=== PATIENT | male | born 1970 | race Caucasian/White ===

== ENCOUNTER 2016-11-29 17:27 | Inpatient (IN) | payer OTHER ==
[~2016-11-29] VITALS: Ht 172.7 cm; Wt 81.6 kg
--- NOTE | ~2016-11-29 | US67 ---
[facility] A Service of [facility] RADIOLOGY TEXT RESULTS PATIENT: SHARON RIVERA LOCATION: [facility] 320-01 : 72 UNIT #: [id number] AGE: [address]: Lety Ibarra MD SEX: M ORDER DR: [id number] [facility] [address] [place], [place] [address] [id number] I MR#: [id number] Acc #: [id number] NAME: SHARON RIVERA. : 1970 SEX: M STUDY DATE/TIME: 11/30/2016 7:21 UNIT: [address] ROOM: [facility] STUDY DESCRIPTION: US Gallbladder Attending Physician: Lety Ibarra M.D. Ordering Physician: Ana Taylor M.D. Primary Care Physician: Adolph Winchester M.D. MEDICAL IMAGING REPORT This report is preliminary unless electronic signature is present EXAM gallbladder ultrasound 11/30/2016 HISTORY Right upper quadrant abdominal pain and abdominal bloating for 2 years worsening in the last month. FINDINGS The liver is homogeneous in echotexture and demonstrates no cystic or solid mass lesions. The intra and extrahepatic bile ducts are not dilated. The gallbladder demonstrates a diffusely thickened wall measuring 5 mm. There is no evidence of cholelithiasis. If there is clinical concern for acalculous cholecystitis recommend correlation with HIDA scan. The common duct measures 4 mm. The pancreas and right kidney are normal. Right pleural effusion is noted. IMPRESSION 1. Mild diffuse thickening of the gallbladder wall with no evidence of cholelithiasis. If there is clinical concern for acalculous cholecystitis recommend correlation with HIDA scan. 2. Right pleural effusion. Dictated by... Jorge Simms M.D. THIS IS AN ELECTRONICALLY VERIFIED REPORT Jorge Simms M.D. at 12/01/2016 7:48 AM BUDDY/richard TD: 11/30/2016 10:32 JOB #: [id number] [facility] A Service of [facility] RADIOLOGY TEXT RESULTS PATIENT: SHARON RIVERA LOCATION: [facility] 320-01 : 72 UNIT #: [id number] AGE: [address]: Lety Ibarra MD SEX: M ORDER DR: MEDICAL IMAGING REPORT Page 1 of 1 COPY
--- NOTE | ~2016-11-29 | CR72 ---
[facility] A Service of [facility] RADIOLOGY TEXT RESULTS PATIENT: SHARON RIVERA LOCATION: [facility] 320-01 : 72 UNIT #: [id number] AGE: [address]: Lety Ibarra MD SEX: M ORDER DR: [id number] [facility] [address] [place], [place] [address] [id number] E MR#: [id number] Acc #: [id number] NAME: SHARON RIVERA. : 1970 SEX: M STUDY DATE/TIME: 11/29/2016 18:59 UNIT: [facility] ROOM: STUDY DESCRIPTION: CR Chest Single View Portable Attending Physician: Robert Maldonado D.O. Ordering Physician: Robert Maldonado D.O. Primary Care Physician: Adolph Winchester M.D. MEDICAL IMAGING REPORT This report is preliminary unless electronic signature is present EXAM Portable chest. HISTORY Chest pain, shortness of air for 2 days. FINDINGS Portable view of the chest demonstrates cardiomegaly with prominence of the pulmonary vascularity and interstitium, could represent early CHF. There is slight blunting of both CP angles suggesting small bilateral effusions. Opacity in the right lung base could represent early airspace disease. Background changes suggest mild emphysema. Osseous structures unremarkable. Mediastinum unremarkable. Dictated by... Maninder Justice M.D. THIS IS AN ELECTRONICALLY VERIFIED REPORT Maninder Justice M.D. at 11/30/2016 2:21 PM Ambrocio TD: 11/29/2016 23:11 JOB #: [id number] MEDICAL IMAGING REPORT Page 1 of 1 COPY
--- NOTE | ~2016-11-29 | CT16 ---
[facility] A Service of [facility] RADIOLOGY TEXT RESULTS PATIENT: SHARON RIVERA LOCATION: [facility] 320-01 : 72 UNIT #: [id number] AGE: [address]: Lety Ibarra MD SEX: M ORDER DR: [id number] [facility] [address] [place], [place] [address] [id number] I MR#: [id number] Acc #: [id number] NAME: SHARON RIVERA. : 1970 SEX: M STUDY DATE/TIME: 11/29/2016 21:09 UNIT: [facility] ROOM: 90[address] STUDY DESCRIPTION: CT Angio Chest for PE Attending Physician: Ana Taylor M.D. Ordering Physician: Robert Maldonado D.O. Primary Care Physician: Adolph Winchester M.D. MEDICAL IMAGING REPORT This report is preliminary unless electronic signature is present EXAM CT chest PE protocol. HISTORY Chest pain, abdominal pain, bloating, onset today. This CT exam was performed with one or more of the following radiation dose reduction techniques: automatic exposure control, adjustment of mA and/or kV according to patient size, and iterative reconstruction. FINDINGS Axial images performed through the chest following IV contrast. 3-D coronal and sagittal reconstructed images were reviewed. There are bilateral pleural effusions with a small right pleural effusion measuring up to 2.5 cm to 3 cm in depth and a small left pleural effusion layering to a depth of less than a centimeter. Focal ground-glass and airspace opacity noted right lower lobe concerning for acute infectious pneumonia. There is also focal airspace opacity left upper lobe anteriorly, also concerning for focal pneumonia. There is some overall increased density throughout the lung which may represent diffuse ground-glass opacities though I suspect this may just be technical. There is some paraseptal emphysema right upper lung and medial left upper lung. No evidence of pulmonary embolus. Heart size normal. Moderate amount of mediastinal lymphadenopathy and left hilar and AP window lymphadenopathy. This may be reactive in nature. Upper abdomen unremarkable. Osseous structures, thoracic inlet appear normal. IMPRESSION 1. Abnormal chest CT demonstrating small bilateral pleural effusions, right greater than left, with airspace opacity right lower lobe and focal airspace opacity anterior aspect left upper lobe, possibly STS. [facility] A Service of [facility] RADIOLOGY TEXT RESULTS PATIENT: SHARNO RIVERA LOCATION: [facility] 320-01 : 74 UNIT #: [id number] AGE: [address]: Lety Ibarra MD SEX: M ORDER DR: representing acute infectious pneumonia. 2. No evidence of pulmonary embolus. 3. A small amount of paraseptal emphysema lung apices. 4. Mediastinal and hilar lymphadenopathy, nonspecific. 5. Differential would include infectious or inflammatory processes with a neoplastic process considered less likely. Dictated by... Maninder Justice M.D. THIS IS AN ELECTRONICALLY VERIFIED REPORT Maninder Justice M.D. at 11/30/2016 2:22 PM JUNI/jorje TD: 11/30/2016 00:35 JOB #: [id number] MEDICAL IMAGING REPORT Page 1 of 1 COPY
--- NOTE | ~2016-11-29 | DS ---
Unit #: [id number] #: [id number] Patient: SHARON RIVERA [id number] [address] [address] [id number] I MR#: [id number] NAME: SHARON RIVERA. ROOM: 320 Age: 46 Sex: M Admission Date: 11/29/2016 : 1970 Discharge Date: 12/02/2016 Attending Physician: Lety Ibarra M.D. Primary Care Physician: Adolph Winchester M.D. DISCHARGE SUMMARY PRINCIPAL DIAGNOSES 1. Acute systolic congestive heart failure, ejection fraction of approximately 10%. 2. Sepsis secondary to right lower lobe and left upper lobe community-acquired pneumonia. 3. Acute exacerbation of chronic obstructive pulmonary disease, mild and off of steroid therapy. 4. Chronic kidney disease stage 2 with baseline creatinine of 1.1. 5. Steroid-induced hyperglycemia with normal hemoglobin A1C of 5.1. 6. Gastroesophageal reflux disease. 7. Bipolar disorder. 8. Severe mitral regurgitation. 9. Severe tricuspid regurgitation. 10. Asthma. 11. Steroid-induced aggression. 12. Tobaccoism. 13. Suspected undescended testes. 14. Nonsustained ventricular tachycardia. CONSULTANTS Dr. Mayberry, cardiology. PROCEDURES Left-sided heart catheterization on December 02, 2016 with normal coronaries. Ejection fraction 15%. DIAGNOSTIC STUDIES CARDIOVASCULAR: Two-dimensional echocardiogram on November 30, 2016 with ejection fraction of 10%. Severe global hypokinesis left ventricle noted. Moderately dilated left atrium. Moderately enlarged right atrium. Moderately dilated right ventricle. Severe mitral regurgitation and [id number] tricuspid regurgitation noted. Right ventricular systolic pressure of 40 mmHg. IMAGING: Chest x-ray on November 29, 2016 with prominence of pulmonary vascularity, interstitium. Blunting of the costophrenic angles consistent with small bilateral effusions. Mild emphysema noted. CT scan of abdomen and pelvis with contrast on November 29, 2016 with small bilateral pleural effusions, right greater than left. No acute intraabdominal, intrapelvic pathology. Suspected bilateral undescended testes. CT angiogram of the chest on November 29, 2016 revealing small bilateral Unit #: [id number] #: [id number] Patient: NICOLE,SHARON D pleural effusions, right greater than left. No evidence of PE. Paraseptal emphysema lung apices noted. Right upper quadrant ultrasound November 30 2016 with diffuse thickening of the gallbladder but no evidence of cholecystitis. Right pleural effusion noted. CLINICAL HISTORY AND HOSPITAL COURSE Mr. Rivera is a nice 46-year-old gentleman who presented to the emergency department with increasing shortness of breath and right upper quadrant pain. Please refer to H and P for further details. Patient's BNP was found to be elevated at approximately 1,100 upon presentation. Chest x-ray also revealed pulmonary edema. However, there were concerns clinically about underlying pneumonia given his complaints of shortness of breath and cough. He also had a mild leukocytosis with white blood cell count of 12.2. Patient was subsequently admitted Patient was placed on IV antibiotics for presumed pneumonia. He was placed initially on IV steroids for suspected associated COPD exacerbation. However, a two-D echocardiogram done at bedside revealed a significantly low ejection fraction, and by the time I evaluated the following morning, he had no wheezing. Steroids were discontinued. I will note a CT angiogram of the chest did reveal some pneumonia, and antibiotics were tapered. Patient remained afebrile throughout hospitalization and had no evidence of hypoxia. I have transitioned him to oral antibiotics in regard to his pneumonia and will continue treatment. In regard to patient's low EF, cardiology was consulted. Patient underwent left-sided heart catheterization with normal coronaries today; thus, his CHF is nonischemic. We are going to continue treatment with medications as outlined below. I will note that prior authorization for Entresto has been initiated but has not been approved by his insurance, and thus, I am going to send him home on ADITYA inhibitor, but perhaps ADITYA inhibitor washout at initiation of Entresto, if PA is approved, can be done on an outpatient basis. 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 Patient was also found to have severe mitral and tricuspid regurgitation, and these will be followed up by cardiology on an outpatient basis. Patient's other chronic conditions all remained stable. He will be discharged home later today. DISCHARGE CONDITION Stable. DISCHARGE STATUS Discharge to home. DISCHARGE MEDICATIONS 1. Zoloft 50 mg daily. 2. Geodon 20 mg t.i.d. 3. Lasix 40 mg b.i.d. 4. Zestril 5 mg at bedtime. 5. Azithromycin 500 mg p.o. daily for another 4 days. 6. Klor-Con 20 mEq p.o. daily. DISCHARGE INSTRUCTIONS Unit #: [id number] #: [id number] Patient: SHARON RIVERA Patient was instructed to follow a heart healthy, low salt, 1,500 mL fluid restricted diet. He can increase activity as tolerated. To refrain from any further tobacco use. FOLLOW-UP Patient will follow up with Dr. Mayberry in approximately 3 to 4 weeks. Again, I will note Entresto PA is currently pending at [facility], and this can be followed up on an outpatient basis with a washout of ADITYA inhibitor if Entresto is approved. Currently also evaluating if patient qualifies for vest, given he had some nonsustained V tach, and, if so, this will be dictated as an addendum. NOTE: Time spent on discharge - 35 minutes. Dictated by... Lety Ibarra M.D. MITESH/hernán TD: 12/05/2016 14:44 JOB #: [id number] DISCHARGE SUMMARY Page 1 of 1 X Lety Ibarra MD DISCHARGE SUMMARY
--- NOTE | ~2016-11-29 | HP ---
Unit #: [id number] #: [id number] Patient: SHARON RIVERA [id number] [address] [place], [place] [address] [id number] I MR#: [id number] NAME: SHARON RIVERA. ROOM: 320 Age: 46 Sex: M Admission Date: 11/29/2016 : 1970 Attending Physician: Ana Taylor M.D. Primary Care Physician: Adolph Winchester M.D. HISTORY AND PHYSICAL CHIEF COMPLAINT Shortness of breath and right upper quadrant pain. HISTORY OF PRESENT ILLNESS This pleasant 46-year-old male with bipolar disorder, asthma, is admitted for shortness of breath and right upper quadrant pain. The patient was well until 2 weeks prior to admission when he developed progressive shortness of breath, worse with exertion but also worse when laying supine. He has a nonproductive cough with the above but I am unsure if the cough is actually worse, does note occasional wheezing. Was placed on Symbicort about a week ago without improvement. He also notes over the last 2 years intermittent abdominal discomfort. He states that last evening after eating he developed fairly significant right upper quadrant pain with radiation across the abdomen into the right lower quadrant associated with nonbloody nausea, vomiting and sweats. The pain was fairly severe last evening, the patient began to experience increasing shortness of breath with the pain as well. Denies chest discomfort with the above. He presents to this emergency department where he is afebrile, but chest x-ray and CT scan are suggestive of a right lower lobe and left upper lobe infiltrate. Also noted are small bilateral pleural effusions and cardiomegaly. Patient's BNP is 1,177. He denies chest pain. EKG is somewhat abnormal in the inferior and lateral leads. The patient denies previous history of heart disease. On examination he is tender in the right upper quadrant. He does have elevated JVD. He was treated in the ER with Protonix, Zofran, Toradol, Solu-Medrol, Rocephin and Zithromax. PAST MEDICAL HISTORY 1. Bipolar disorder. 2. GERD. 3. Asthma. 4. Environmental allergies. 5. Right shoulder surgery. 6. Inguinal hernia repair. 7. Eye surgery. SOCIAL HISTORY The patient lives with his girlfriend and her children. He smokes one-half pack per day or tobacco, wants to stop smoking. 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 Except for occasional marijuana he denies other illicit drug use. He states that many years ago he was addicted to drugs but has been clean and sober for many years. Unit #: [id number] #: [id number] Patient: SHARON RIVERA FAMILY HISTORY Atrial fibrillation. ALLERGIES Codeine. MEDICATIONS Prilosec daily. Flonase nasal spray. p.r.n. Antonette or Claritin. Symbicort recently started. Albuterol p.r.n. REVIEW OF SYSTEMS Notable for shortness of breath, minor cough, bipolar disorder, right upper quadrant pain, GERD, asthma, environmental allergies, tobacco use and above-mentioned surgeries. All other systems were reviewed and otherwise negative. PHYSICAL EXAMINATION GENERAL APPEARANCE: Pleasant 46-year-old male currently in no acute distress. VITAL SIGNS: Temp 98.4, pulse 102, respirations 16, B/P 134/89, 02 saturation is 98% on room air initially. HEENT: Eyes - PERRLA, extraocular muscles are intact. Pharynx is benign. NECK: Supple without adenopathy or thyromegaly. Elevated JVD noted. CHEST: Chest with a few crackles at the bases. HEART: Slightly tachy S1 and S2 without definite murmur. ABDOMEN: Bowel sounds are present. The patient is tender in the right upper quadrant but without rebound, guarding or hepatosplenomegaly or masses. EXTREMITIES: Without edema, pedal pulses are present but diminished. NEUROLOGIC: The patient is awake, alert, oriented. Cranial nerves are intact, equal strength throughout. DIAGNOSTIC STUDIES LABORATORY: Hematocrit 42.5, white count is 12.2, normal platelet count. Troponin is negative. D-dimer elevated to 573. SMA 12 - glucose 115, potassium 3.2, normal lipase, amylase, LFTs, normal lactic acid. BNP is 1,177. Urinalysis 1+ protein. IMAGING: Chest x-ray - cardiomegaly, prominent vascular congestion with small bilateral pleural effusions. Right lung base opacity and COPD. CT scan of the abdomen - small bilateral pleural effusions, opacity right lower lobe, diverticular disease, questionable undescended testes. CT scan of the chest - negative for PE. Small bilateral pleural effusions, right lower lobe, left upper lobe opacities suggestive COPD. Mediastinal and hilar adenopathy which is nonspecific. CARDIOVASCULAR: EKG - sinus tachycardia rate 116 with biatrial enlargement. T-wave abnormalities which are nonspecific noted inferiorly and laterally, 1 PVC noted. No previous EKG for comparison. ASSESSMENT 1. Dyspnea for the past 2 weeks. Possibly this represents community-acquired pneumonia with underlying COPD. Obviously need to rule out congestive heart failure given elevated BNP and small bilateral pleural effusions. Unit #: [id number] #: [id number] Patient: SHARON RIVERA 2. Right upper quadrant pain. 3. Hypokalemia. 4. COPD and ongoing tobacco abuse. 5. Bipolar disorder. 6. GERD. 7. Nonspecific mediastinal adenopathy. PLAN 1. Steroids, duo-nebs. 2. Zosyn and Zithromax. 3. Obtain echo. 4. Obtain right upper quadrant ultrasound. 5. Replace potassium, check magnesium. 6. SCDs for DVT prophylaxis. 7. Smoking cessation counseling. 8. Patient will need repeat CT scan as an outpatient given adenopathy. 9. Consultants depending on above findings. STAT * RESULT Dictated by Ana Taylor M.D. EDA/jorje TD: 11/30/2016 04:16 JOB #: [id number] HISTORY AND PHYSICAL Page 1 of 1 X Ana Taylor MD X HISTORY AND PHYSICAL
--- NOTE | ~2016-11-29 | CO ---
Unit #: [id number] #: [id number] Patient: SHARON RIVERA [id number] [address] [place], [place] [address] [id number] I MR#: [id number] NAME: SHARON RIVERA. ROOM: 320 Age: 46 Sex: M Admission Date: 11/29/2016 : 1970 Attending Physician: Lety Ibarra M.D. Primary Care Physician: Adolph Winchester M.D. CONSULTATION REPORT REASON FOR CONSULTATION Abnormal echocardiogram. HISTORY OF PRESENT ILLNESS This is a 46-year-old white male who was admitted with a complaint of shortness of breath and abdominal discomfort. Prior to his admission, he noted abdominal bloating that he felt was indigestion. There was no change after eating a meal. For the past two weeks, he had shortness of breath that occurred when walking to the parking lot. He was unable to lay down without gasping for breath requiring him to sit upright to breathe. He has a nonproductive cough but no fever or chills. He has a history of asthma but to use an inhaler usually improves his breathing; however, inhalers did not relieve his dyspnea. He reports no chest pain or palpitations. He has had no recent illnesses. He does have a remote history of cocaine and prescription pain medicine abuse but he has been in recovery for the past nine years. During the course of his stay, the patient had an echocardiogram done that showed severe left ventricular systolic dysfunction where his ejection fraction was 10%. He also had severe mitral regurgitation. His BNP was elevated at 1177. Electrocardiogram shows no acute ischemic changes. Troponin has been negative. PAST MEDICAL HISTORY 1. A 2D echocardiogram, November 30, 2016, shows an ejection fraction of 10%. There is mildly dilated right and left atrium, severe mitral regurgitation with cmbxkkoz-[id number] tricuspid regurgitation. Right ventricular systolic pressure 40 mmHg. 2. Asthma. 3. GERD. 4. Questionable obstructive sleep apnea. 5. Remote history of cocaine and prescription pain medicine abuse. 6. Active smoker. PAST SURGICAL HISTORY 1. Inguinal hernia repair. 2. Right shoulder surgery. 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 He smokes a half pack to a pack of cigarettes a day but has been cutting back. He has no history of alcohol use. No recreational drug use except for occasional marijuana. 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 Unit #: [id number] #: [id number] Patient: SHARON RIVERA FAMILY HISTORY Father had a "small" myocardial infarction in his 50s but is currently living well at 88. Has a brother who has atrial fibrillation. ALLERGIES Codeine. HOME MEDICATIONS 1. Geodon 20 mg t.i.d. 2. Zoloft 50 mg daily. REVIEW OF SYSTEMS CONSTITUTIONAL: Negative for fever or chills. Has no weight gain or weight loss. HEENT: No headache, hearing or visual changes, difficulty with swallowing. Denies dizziness. CARDIOVASCULAR: No symptoms of angina. Denies palpitations. Positive for paroxysmal nocturnal dyspnea or orthopnea. No syncope or near syncope. RESPIRATORY: Has dyspnea at rest, worse on exertion. Has occasional nonproductive cough. No hemoptysis. GASTROINTESTINAL: Positive for abdominal discomfort in the epigastric region and right flank. Has occasional nausea but no vomiting, diarrhea, hematemesis, or hematochezia. EXTREMITIES: Denies lower extremity edema. PHYSICAL EXAMINATION VITAL SIGNS: Blood pressure 123/86, heart rate 101, temperature 98.4, BMI 28. GENERAL: This is a mildly obese 46-year-old white male who is in no acute respiratory distress. NEUROLOGIC: He is awake, alert, and oriented. There are no focal weaknesses. NECK: Trachea is midline. No thyromegaly or lymphadenopathy. Positive jugular venous distention at 3 cm. HEART: S1, S2 heart sounds are normal. No murmurs. No rubs. No clicks. Regular rate and rhythm. Tachycardic. ABDOMEN: Slightly distended with bowel sounds present. Positive for hepatomegaly. There is tenderness in the epigastric region in the right flank and upper quadrant. EXTREMITIES: Palpable pedal pulses and low leg edema. SKIN: Warm and dry. DIAGNOSTIC STUDIES LABORATORY: Hemoglobin 14.4, hematocrit 43.1, platelet count 239,000, white count 10.2. Sodium 137, potassium 4.3, BUN 9, creatinine 1.3, glucose 215. Magnesium 1.9. BNP 1177. TSH 0.34. Troponin less than 0.05. D-dimer 573. IMAGING: CT of the chest shows negative for pulmonary embolism. There is small bilateral pleural effusions. Acute infectious pneumonia. Ultrasound of the gallbladder shows no gallbladder cholelithiasis or cholecystitis. CARDIOVASCULAR: Electrocardiogram with sinus tachycardia with rate of 116 beats per minute with premature ventricular complex. There is T-wave depression in V5-V6. Unit #: [id number] #: [id number] Patient: SHARON RIVERA IMPRESSION 1. Abdominal pain, questionable etiology. 2. Pneumonia. 3. Acute new-onset systolic heart failure with reduced ejection fraction of 10%. 4. Cardiomyopathy. 5. History of asthma. 6. Nicotine abuse. 7. Questionable obstructive sleep apnea. PLAN 1. Cardiology was consulted for abnormal echocardiogram. The patient shows severe left ventricular systolic dysfunction. BNP is elevated. It is questionable if the patient's systolic heart failure is drug related. 2. Will start the patient on dobutamine at low dose. 3. Continue IV diuretics. 4. Hold carvedilol while the patient is on dobutamine drip. 5. Start the patient on ADITYA inhibitor if blood pressure tolerates. 6. Fluid restriction will be initiated. 7. Cardiac catheterization is recommended to define his coronary anatomy. This has been discussed with the patient and his nephew. 8. Cardiac catheterization will be done once the patient's heart failure improves. Thank you for allowing us to assist with this patient's care. Dictated by... Renetta ThomsonPElina Barrera/dallas TD: 12/01/2016 17:10 JOB #: [id number] CONSULTATION REPORT Page 1 of 1 X Marcelo Hannah APRN X CONSULTATION REPORT
--- NOTE | ~2016-11-29 | CR63 ---
[facility] A Service of [facility] & [facility] RADIOLOGY TEXT RESULTS PATIENT: SHARON RIVERA LOCATION: [facility] 320-01 : [birth year] UNIT #: [id number] AGE: [address]: Lety Ibarra MD SEX: M ORDER DR: [id number] [facility] [address]. [place], [place] [address] [id number] I MR#: [id number] #: [id number] NAME: SHARON RIVERA. : 1970 SEX: M STUDY DATE/TIME: 12/01/2016 7:26 UNIT: [address] ROOM: [facility] STUDY DESCRIPTION: CR Chest 2 View Attending Physician: Lety Ibarra M.D. Ordering Physician: Lety Ibarra M.D. Primary Care Physician: Adolph Winchester M.D. MEDICAL IMAGING REPORT This report is preliminary unless electronic signature is present EXAM Chest PA and lateral, 12/01/2016 HISTORY Congestive heart failure, shortness of breath, abdominal pain and right upper quadrant pain for 3 weeks, asthma, congestive heart failure. Smoking history. FINDINGS There is mild cardiac enlargement. The lungs are clear. Small bilateral pleural effusions are noted. IMPRESSION Cardiomegaly and small bilateral pleural effusions. Dictated by... Jorge Simms M.D. THIS IS AN ELECTRONICALLY VERIFIED REPORT Jorge Simms M.D. at 12/02/2016 7:55 AM BUDDY/romelia TD: 12/01/2016 09:43 JOB #: [id number] MEDICAL IMAGING REPORT Page 1 of 1 COPY
--- NOTE | ~2016-11-29 | EKG ---
PATIENT: SHARON RIVERA UNIT #: [id number] Ventricular Rate: 99 BPM Atrial Rate: 99 BPM P-R Interval: 174 ms QRS Duration: 90 ms Q-T Interval: 372 ms QTC Calculation(Bezet): 477 ms P [place]: 73 degrees Calculated R [place]: 27 degrees Calculated T [place]: -97 degrees Diagnosis Line: Normal sinus rhythm Diagnosis Line: Biatrial enlargement Diagnosis Line: T wave abnormality, consider inferolateral Diagnosis Line: ischemia Diagnosis Line: Prolonged QT Diagnosis Line: Abnormal ECG Diagnosis Line: When compared with ECG of 29-NOV-2016 19:00, Diagnosis Line: Premature ventricular complexes are no longer Diagnosis Line: Present Diagnosis Line: Non-specific change in ST segment in Anterior Diagnosis Line: leads Diagnosis Line: T wave inversion more evident in Inferior leads Diagnosis Line: T wave inversion now evident in Anterior leads Diagnosis Line: Confirmed by OMARI MARIANO MD ([id number]) on Diagnosis Line: 12/02/2016 4:48:53 PM INTERPRETING MD: NICK
--- NOTE | ~2016-11-29 | EKG ---
PATIENT: SHARON RIVERA UNIT #: [id number] Ventricular Rate: 116 BPM Atrial Rate: 116 BPM P-R Interval: 172 ms QRS Duration: 88 ms Q-T Interval: 348 ms QTC Calculation(Bezet): 483 ms P [place]: 81 degrees Calculated R Tyler: 82 degrees Calculated T Tyler: 0 degrees Diagnosis Line: Sinus tachycardia with occasional Premature Diagnosis Line: ventricular complexes Diagnosis Line: Possible Left atrial enlargement Diagnosis Line: Nonspecific ST and T wave abnormality Diagnosis Line: Abnormal ECG Diagnosis Line: No previous ECGs available Diagnosis Line: Confirmed by EMMANUEL ROCK MD ([id number]) on 11/30/2016 Diagnosis Line: 7:17:49 PM INTERPRETING MD: SHWETA CHRISTINA
--- NOTE | ~2016-11-29 | CT2 ---
[facility] A Service of [facility] & [facility] RADIOLOGY TEXT RESULTS PATIENT: SHARON RIVERA LOCATION: A 320-01 : 74 UNIT #: [id number] AGE: [address]: Lety Ibarra MD SEX: M ORDER DR: [id number] [facility] [address]. [place], [place] [address] [id number] I MR#: [id number] #: [id number] NAME: SHARON RIVERA. : 1970 SEX: M STUDY DATE/TIME: 11/29/2016 19:34 UNIT: CEDOF ROOM: 01300 STUDY DESCRIPTION: CT Abd and Pelv W Cont Attending Physician: Ana Taylor M.D. Ordering Physician: Robert Maldonado D.O. Primary Care Physician: Adolph Winchester M.D. MEDICAL IMAGING REPORT This report is preliminary unless electronic signature is present EXAM CT abdomen and pelvis with contrast HISTORY Chest pain, abdominal pain, bloating, onset today. FINDINGS Axial images performed through the abdomen and pelvis following IV contrast. Multiplanar reconstructed images were reviewed. This CT exam was performed with one or more of the following radiation dose reduction techniques: automatic exposure control, adjustment of mA and/or kV according to patient size, and iterative reconstruction. ABDOMEN: Bilateral pleural effusions right greater than left. The right-sided effusion layers to a depth of about 2.5 cm with some compressive atelectasis. Left-sided effusion is less than a centimeter. Focal parenchymal opacity seen in the right lung base concerning for pneumonia. Liver, spleen, gallbladder, pancreas, kidneys and adrenal glands unremarkable. Visualized GI tract unremarkable except for a few scattered diverticula, primarily in the sigmoid colon. The appendix is normal. Retroperitoneum unremarkable. PELVIS: Bladder and prostate appear normal. Sizeable ovoid structures are seen within the inguinal canals bilaterally measuring about 5 cm on the right and 4.9 cm on the left. These strongly suggest undescended testes. Osseous structures show mild degenerative change lumbar spine. IMPRESSION 1. Small bilateral pleural effusions right greater than left with focal STS. [facility] A Service of [facility] & [facility] RADIOLOGY TEXT RESULTS PATIENT: SHARON RIVERA LOCATION: [facility] 320-01 : 74 UNIT #: [id number] AGE: [address]: Lety Ibarra MD SEX: M ORDER DR: airspace disease right lower lobe highly concerning for right lower lobe pneumonia. Please see chest CT report for additional details. 2. No definite acute intraabdominal or intrapelvic pathology. There are a few scattered sigmoid diverticula. 3. Not mentioned above there is radiodensities in the left anterior abdominal wall may be related from prior surgery. Correlate clinically. 4. Suspected bilateral undescended testes. Dictated by... Maninder Justice M.D. THIS IS AN ELECTRONICALLY VERIFIED REPORT Maninder Justice M.D. at 11/30/2016 2:22 PM JUNI/jorje TD: 11/30/2016 00:29 JOB #: [id number] MEDICAL IMAGING REPORT Page 1 of 1 COPY
[2016-11-29 18:08] LABS: BASOPHIL% 0.4 % (0-2.5); EOSINOPHIL# 0.1 X10e3 (0-0.7); EOSINOPHIL% 0.9 % (0.0-7.0); HEMATOCRIT 42.5 % (38.0-50.0); HEMOGLOBIN 14.4 gm/dL (13.0-16.0); LYMPHOCYTE# 2.6 X10e3 (1.0-3.5); LYMPHOCYTE% 21.5 % (17.0-45.0); MEAN CELL VOLUME 88.6 FL (83-96); MEAN CORPUSCULAR HGB CONC 33.8 g/dL (30-36); MEAN PLATELET VOLUME 10.3 FL (6.5-11.5); MONOCYTE# 0.9 X10e3 (0-1.0); MONOCYTE% 7.4 % (3.0-12.0); NEUTROPHIL# 8.6 X10e3 (1.5-7.1); NEUTROPHIL% 69.8 % (40-75); PLATELET COUNT 224 X10e3 (140-420); RED BLOOD COUNT 4.79 X10e (3.90-5.60); RED CELL DISTRIBUTION WIDTH 13.8 % (11.0-15.5); WHITE BLOOD COUNT 12.2 X10e3 (4.0-10.5)
[2016-11-29 18:12] LABS: DIFF IND NO
[2016-11-29 18:49] LABS: ALBUMIN SERUM 3.8 g/dL (3.5-5.0); BILIRUBIN, DIRECT 0.2 mg/dL (0.0-0.2); BILIRUBIN,INDIRECT 0.6 mg/dL (0.0-0.9); BILIRUBIN,TOTAL 0.8 mg/dL (0.2-2.0); BUN/CREATININE RATIO 4.54; CALCIUM SERUM 8.7 mg/dL (8.4-10.2); CREATININE SERUM 1.1 mg/dL (0.6-1.4); GLOM FILT RATE Estimated 81.2 mL/min (>60); POTASSIUM 3.2 mmol/L (3.5-5.1); PROTEIN TOTAL SERUM 6.6 g/dL (6.0-8.3)
[2016-11-29 18:50] LABS: URINE SOURCE CLEAN CATCH
[2016-11-29 18:58] LABS: URINE APPEARANCE CLEAR; URINE BILIRUBIN NEG (NEG); URINE BLOOD NEG (NEG); URINE COLOR YELLOW; URINE GLUCOSE NEG (NEG); URINE KETONE NEG (NEG); URINE LEUKOCYTE ESTERASE NEG (NEG); URINE NITRATE NEG (NEG); URINE PROTEIN 1+ (NEG); URINE SPECIFIC GRAVITY 1.008 (1.003-1.035)
[2016-11-29 18:59] LABS: URBCS1 AUWI 0-2 /[HPF] (0-2); URINE BACTERIA AUWI NEG (NEGATIVE); URINE SQUAMOUS EPITHELIAL CELL NONE SEEN /[HPF]; UWBCS1 AUWI 0-2 (0-5)
[2016-11-29 19:00] LABS: CULTURE INDICATED? NO
[2016-11-29 20:37] LABS: POC - CKMB 1.8 ng/mL (0.0-7.9); POC - TROPONIN <0.05 ng/mL (<=0.05)
[2016-11-30] MEDS ORDERED: ZOLOFT50 MG PO (01:37)
[2016-11-30] MEDS ORDERED: GEODON20 MG PO (01:38)
[2016-11-30 04:56] LABS: HEMATOCRIT 43.1 % (38.0-50.0); HEMOGLOBIN 14.4 gm/dL (13.0-16.0); MEAN CORPUSCULAR HEMOGLOBIN 29.8 PG (28-34); MEAN CORPUSCULAR HGB CONC 33.5 g/dL (30-36); RED BLOOD COUNT 4.84 X10e (3.90-5.60); RED CELL DISTRIBUTION WIDTH 14.1 % (11.0-15.5); WHITE BLOOD COUNT 10.2 X10e3 (4.0-10.5)
[2016-11-30 05:30] LABS: BUN/CREATININE RATIO 6.92; CALCIUM SERUM 8.5 mg/dL (8.4-10.2); CREATININE SERUM 1.3 mg/dL (0.6-1.4); GLOM FILT RATE Estimated 66.4 mL/min (>60); MAGNESIUM 1.9 mg/dL (1.6-3.0); POTASSIUM 4.3 mmol/L (3.5-5.1)
[2016-11-30 06:06] LABS: %MB 2.5 % (0.0-4.0); MB 3.1 ng/ml
[2016-11-30 13:29] LABS: CHOLESTEROL 188 mg/dL (0-200); HDL CHOLESTEROL 30 mg/dL (29-75); LDL/HDL RATIO 5 RATIO (0-4); TRIGLYCERIDES 60 mg/dL (10-160)
[2016-11-30 13:32] LABS: LDL CHOLESTEROL 146 mg/dL (-130)
[2016-12-01 05:37] LABS: HEMATOCRIT 40.4 % (38.0-50.0); HEMOGLOBIN 13.2 gm/dL (13.0-16.0); MEAN CELL VOLUME 89.8 FL (83-96); MEAN CORPUSCULAR HEMOGLOBIN 29.3 PG (28-34); MEAN CORPUSCULAR HGB CONC 32.6 g/dL (30-36); MEAN PLATELET VOLUME 10.5 FL (6.5-11.5); RED BLOOD COUNT 4.5 X10e (3.90-5.60); RED CELL DISTRIBUTION WIDTH 14.2 % (11.0-15.5)
[2016-12-01 06:39] LABS: CREATININE SERUM 1.1 mg/dL (0.6-1.4); GLOM FILT RATE Estimated 81.2 mL/min (>60)
[2016-12-02 09:06] LABS: CALCIUM SERUM 8.8 mg/dL (8.4-10.2); CREATININE SERUM 1.1 mg/dL (0.6-1.4); GLOM FILT RATE Estimated 81.2 mL/min (>60); POTASSIUM 3.5 mmol/L (3.5-5.1)
[2016-12-02 09:55] LABS: HEMATOCRIT 47.9 % (38.0-50.0); MEAN CELL VOLUME 89.2 FL (83-96); MEAN CORPUSCULAR HEMOGLOBIN 29.8 PG (28-34); MEAN CORPUSCULAR HGB CONC 33.4 g/dL (30-36); MEAN PLATELET VOLUME 10.7 FL (6.5-11.5); RED BLOOD COUNT 5.37 X10e (3.90-5.60); WHITE BLOOD COUNT 11.5 X10e3 (4.0-10.5)
[2016-12-02] MEDS ORDERED: KCL PO (16:23)
[2016-12-02] MEDS ORDERED: COREG6.25 MG PO (16:24)
[2016-12-02] MEDS ORDERED: FUROSEMIDE40 MG PO (16:24)
[2016-12-02] MEDS ORDERED: AZITHROMYCIN500 MG PO (16:25)
[2016-12-02] MEDS ORDERED: ZESTRIL5 MG PO (16:25)
== END 2016-12-02 17:40 | disposition home health service (06) | DRG 871 ==
LOC: CED 17:27 → CEDOF 23:30 → CED 23:30 → C3A PCU 23:30 → CEDOF 11-30 00:43 → C3A PCU 11-30 00:43
PROVIDERS: Emergency Medicine; Internal Medicine; Internal Medicine Cardiovascular Disease
PROC: 4A023N7 Measurement of Cardiac Sampling and Pressure, Left Heart, Percutaneous Approach (ICD-10-PCS; principal; 2016-11-29)
PROC: B211YZZ Fluoroscopy of Multiple Coronary Arteries using Other Contrast (ICD-10-PCS; 2016-11-29)
PROC: B215YZZ Fluoroscopy of Left Heart using Other Contrast (ICD-10-PCS; 2016-11-29)
PROC: B32TYZZ Computerized Tomography (CT Scan) of Left Pulmonary Artery using Other Contrast (ICD-10-PCS; 2016-11-29)
PROC: B32SYZZ Computerized Tomography (CT Scan) of Right Pulmonary Artery using Other Contrast (ICD-10-PCS; 2016-11-29)
PROC: B246YZZ Ultrasonography of Right and Left Heart using Other Contrast (ICD-10-PCS; 2016-11-30)
DX: A41.9 Sepsis, unspecified organism (principal); I50.23 Acute on chronic systolic (congestive) heart failure; I47.2 Ventricular tachycardia; I13.0 Hypertensive heart and chronic kidney disease with heart failure and stage 1 through stage 4 chronic kidney disease, or unspecified chronic kidney disease; I42.0 Dilated cardiomyopathy; J18.9 Pneumonia, unspecified organism; J44.0 Chronic obstructive pulmonary disease with (acute) lower respiratory infection; J44.1 Chronic obstructive pulmonary disease with (acute) exacerbation; N18.2 Chronic kidney disease, stage 2 (mild); Z88.5 Allergy status to narcotic agent; I08.1 Rheumatic disorders of both mitral and tricuspid valves; K21.9 Gastro-esophageal reflux disease without esophagitis; F17.210 Nicotine dependence, cigarettes, uncomplicated; G47.33 Obstructive sleep apnea (adult) (pediatric); R73.9 Hyperglycemia, unspecified; T38.0X5A Adverse effect of glucocorticoids and synthetic analogues, initial encounter; F31.9 Bipolar disorder, unspecified; Q53.9 Undescended testicle, unspecified; E87.6 Hypokalemia; R59.9 Enlarged lymph nodes, unspecified
CPT/HCPCS: 36415; 71010; 71020; 71275; 74177; 76705; 80048; 80061; 80076; 81003; 82150; 82550; 82553; 82947; 83036; 83605; 83690; 83735; 83880; 84300; 84443; 84484; 85025; 85027; 85379; 87040; 89190; 93005; 93306; 94640; 94760; 96374; 96375; 99152; 99153; 99285; C1769; C1887; C1894; C9113; J0456; J0696; J1250; J1644; J1815; J1885; J1940; J2250; J2405; J2543; J2920; J3010; J3475; Q9967